=== PATIENT | male | born 1990 | race Caucasian/White ===

== ENCOUNTER 2022-12-20 13:42 | Emergency (ER) | payer SELFPAY ==
[~2022-12-20] VITALS: Ht 185.4 cm; Wt 68.0 kg
[2022-12-20] MEDS ORDERED: METHOCARBAMOL500 MG PO (15:42)
[2022-12-20] MEDS ORDERED: MEDDOSEPAK PO (15:42)
[2022-12-20 15:54] VITALS: BP 127/71
== END 2022-12-20 16:10 | disposition home or self-care (01) | DRG 552 ==
LOC: ED 13:42
DX: M43.6 Torticollis (principal)